=== PATIENT | female | born 1945 | race Caucasian/White ===

== ENCOUNTER 2016-11-11 16:26 | Emergency (ER) | payer MEDICARE, MEDICAID ==
--- NOTE | 2016-11-11 16:28 | EDM.PDOC ---
ED HPI GENERAL MEDICAL PROBLEM - General Chief Complaint: Neuro Symptoms/Deficits Stated Complaint: AMB Time Seen by Provider: 11/11/16 16:27 Source of Information: Reports: EMS, Old records, RN, RN notes reviewed - History of Present Illness INITIAL COMMENTS - FREE TEXT/NARRATIVE: Arrives by ambulance with Hx per pt's son that pt was having a lot of back pain today, and took a lot muscle relaxer (possibly cyclobenzaprine), baclofen, and possibly some type of benzodiazepine throughout the day. Pt walked to the local bar to buy cigarettes, son states that she was confused, and groggy. She stumbled, then sat down on the grass at the edge of the bar's parking lot. Then she laid back onto her back and was only responsive to tactile stimulation. EMS arrived and gave a 300ml IV fluid bolus, and Narcan 0.4mg IVP with no response. Onset: gradual Onset Date: 11/11/16 Onset Time: 14:30 (approx. 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, Other medication(s) (Narcan) - Related Data Allergies Allergy/AdvReac Type Severity Reaction Status Date / Time No Known Allergies Allergy Verified 11/11/16 17:42 Past Medical History Respiratory History: Reports: COPD Musculoskeletal History: Reports: Back pain, chronic, Osteoarthritis Endocrine/Metabolic History: Reports: Obesity/BMI 30+ Social & Family History - Family History Family Medical History: Unobtainable - Tobacco Use Smoking Status *Q: Current Every Day Smoker Tobacco Use Within Last Twelve Months: Cigarettes Second Hand Smoke Exposure: Yes - Caffeine Use Caffeine Use: Reports: Coffee, Soda - Living Situation & Occupation Living situation: Reports: with family Occupation: retired ED ROS GENERAL - Review of Systems Review Of Systems: Unable To Obtain ED EXAM, GENERAL - Physical Exam Exam: See Below Exam Limited By: Altered mental status (Decreased LOC) General Appearance: obtunded, obese Eye Exam: bilateral eye: EOMI, normal inspection, PERRL Ears: normal external exam Nose: normal inspection, normal mucosa, no blood Throat/Mouth: Normal lips, Normal oropharynx, No airway compromise, Other ( dentures, removed on arrival) Head: atraumatic, normocephalic Neck: normal inspection Respiratory/Chest: no respiratory distress, no accessory muscle use, decreased breath sounds, crackles, other (course breath sounds) Cardiovascular: normal peripheral pulses, regular rate, rhythm, no edema GI/Abdominal: normal bowel sounds, soft, non tender, no distention (Female) Exam: Deferred Rectal (Female) Exam: Deferred Back Exam: normal inspection Extremities: normal inspection, no pedal edema Neurological: other (responsive to tactile and painful stimuli) Skin Exam: Warm, Dry, Intact, Normal color, No rash EKG INTERPRETATION EKG Date: 11/11/16 Time: 16:47 Rhythm: other (SR) Rate (beats/min): 79 Morris: normal P-wave: present QRS: other (late transition, inferior Q-waves) ST-T: normal QT: prolonged Comparison: NA - no prior EKG Course - Vital Signs Last Recorded V/S: Last Vital Signs Temp 36.2 C 11/11/16 16:50 Pulse 82 11/11/16 17:46 Resp 16 11/11/16 17:46 BP 125/66 11/11/16 17:46 Pulse Ox 89 L 11/11/16 17:46 - Orders/Labs/Meds Orders: Active Orders 24 hr Category Date Time Status Blood Glucose Check, Bedside [RC] ONETIME Care 11/11/16 17:21 Active Blood Glucose Check, Bedside [RC] ONETIME Care 11/11/16 17:21 Active EKG 12 Lead [EKG Documentation Completion] [RC] STAT Care 11/11/16 16:29 Active Insert Negron Catheter [Insert Urinary Catheter] [OM.PC] Care 11/11/16 16:45 Ordered Q24H Peripheral IV Care [RC] . DIRECTED Care 11/11/16 16:32 Active Urinary Catheter Assessment [RC] ASDIRECTED Care 11/11/16 16:32 Active CK W CKMB [CHEM] Stat Lab 11/11/16 16:43 Results Piperacillin/Tazobactam [Zosyn] 3.375 gm Med 11/11/16 18:09 Ordered Sodium Chloride 0.9% [Normal Saline] 100 ml IV ONETIME Sodium Chloride 0.9% [Normal Saline] 1,000 ml Med 11/11/16 17:33 Active IV .BOLUS Sodium Chloride 0.9% [Saline Flush] Med 11/11/16 16:31 Active 10 ml FLUSH ASDIRECTED PRN NG [Nasogastric Orogastric Tube Insertion] [OM.PC] Ot 11/11/16 17:04 Ordered Routine Peripheral IV Insertion Adult [OM.PC] Stat Ot 11/11/16 16:29 Ordered Medication Orders Sodium Chloride (Normal Saline) 1,000 mls @ 999 mls/hr IV .BOLUS ONE Stop: 11/11/16 18:33 Last Admin: 11/11/16 17:33 Dose: 999 mls/hr Sodium Chloride (Saline Flush) 10 ml FLUSH ASDIRECTED PRN PRN Reason: Keep Vein Open Last Admin: 11/11/16 16:56 Dose: 10 ml Labs: Laboratory Tests 11/11/16 11/11/16 11/11/16 Range/Units 16:43 16:43 16:43 WBC 12.2 H (5.0-10.0) 10^3/uL RBC 4.36 (4.2-5.4) 10^6/uL Hgb 13.6 (12.0-16.0) g/dL Hct 40.4 (37.0-47.0) % MCV 92.7 (80-100) fL MCH 31.2 (27.0-34.0) pg MCHC 33.7 (33.0-35.0) g/dL Plt Count 274 (150-450) 10^3/uL Neut % (Auto) 65.8 (42.2-75.2) % Lymph % (Auto) 24.5 (20.5-50.1) % [place] % (Auto) 8.6 H (2-8) % Eos % (Auto) 0.9 L (1.0-3.0) % Baso % (Auto) 0.2 (0.0-1.0) % PT 10.6 (9.0-12.0) SEC INR 1.1 (0.9-1.2) APTT 27.6 (22.0-34.0) SEC Sodium 139 (135-145) mmol/L Potassium 3.3 L (3.6-5.0) mmol/L Chloride 109 (101-111) mmol/L Carbon Dioxide 25.0 (21.0-31.0) mmol/L Anion Gap 8.3 BUN 13 (7-18) mg/dL Creatinine 1.1 (0.6-1.3) mg/dL Est Cr Clr Drug Dosing TNP Estimated GFR (MDRD) 49 BUN/Creatinine Ratio 11.81 Glucose 84 (74-105) mg/dL POC Glucose (70-105) mg/dl Calcium 9.2 (8.4-10.2) mg/dl Total Bilirubin 0.5 (0.2-1.0) mg/dL AST 20 (10-42) IU/L ALT 17 (10-60) IU/L Alkaline Phosphatase 66 (42-121) IU/L CK-MB (CK-2) (0.4-4.7) ng/mL Troponin I < 0.02 (0.00-0.02) ng/ml Total Protein 6.7 (6.7-8.2) g/dl Albumin 3.6 (3.2-5.5) g/dl Globulin 3.1 Albumin/Globulin Ratio 1.16 Amylase 37 (28-100) U/L Lipase 20 L (22-51) U/L Urine Color (YELLOW) Urine Appearance (CLEAR) Urine pH (5.0-9.0) Ur Specific [place] (1.005-1.030) Urine Protein (NEGATIVE) Urine Glucose (UA) (NEGATIVE) Urine Ketones (NEGATIVE) Urine Occult Blood (NEGATIVE) Urine Nitrite (NEGATIVE) Urine Bilirubin (NEGATIVE) Urine Urobilinogen (0.2-1.0) mg/dL Ur Leukocyte Esterase (NEGATIVE) Urine RBC /HPF Urine WBC (0-5/HPF) /HPF Ur Epithelial Cells /HPF Urine Bacteria (0-FEW/HPF) /HPF Urine Mucus /LPF Salicylates < 4.0 Urine Opiates Screen (NEGATIVE) Ur Oxycodone Screen (NEGATIVE) Urine Methadone Screen (NEGATIVE) Acetaminophen < 10.0 Ur Barbiturates Screen (NEGATIVE) U Tricyclic Antidepress (NEGATIVE) Ur Phencyclidine Scrn (NEGATIVE) Ur Amphetamine Screen (NEGATIVE) U Methamphetamines Scrn (NEGATIVE) Urine MDMA Screen (NEGATIVE) U Benzodiazepines Scrn (NEGATIVE) Urine Cocaine Screen (NEGATIVE) U Marijuana (THC) Screen (NEGATIVE) Ethyl Alcohol < 5 mg/dL 11/11/16 11/11/16 11/11/16 Range/Units 16:43 16:45 16:45 WBC (5.0-10.0) 10^3/uL RBC (4.2-5.4) 10^6/uL Hgb (12.0-16.0) g/dL Hct (37.0-47.0) % MCV (80-100) fL MCH (27.0-34.0) pg MCHC (33.0-35.0) g/dL Plt Count (150-450) 10^3/uL Neut % (Auto) (42.2-75.2) % Lymph % (Auto) (20.5-50.1) % [place] % (Auto) (2-8) % Eos % (Auto) (1.0-3.0) % Baso % (Auto) (0.0-1.0) % PT (9.0-12.0) SEC INR (0.9-1.2) APTT (22.0-34.0) SEC Sodium (135-145) mmol/L Potassium (3.6-5.0) mmol/L Chloride (101-111) mmol/L Carbon Dioxide (21.0-31.0) mmol/L Anion Gap BUN (7-18) mg/dL Creatinine (0.6-1.3) mg/dL Est Cr Clr Drug Dosing Estimated GFR (MDRD) BUN/Creatinine Ratio Glucose (74-105) mg/dL POC Glucose (70-105) mg/dl Calcium (8.4-10.2) mg/dl Total Bilirubin (0.2-1.0) mg/dL AST (10-42) IU/L ALT (10-60) IU/L Alkaline Phosphatase (42-121) IU/L CK-MB (CK-2) 1.00 (0.4-4.7) ng/mL Troponin I (0.00-0.02) ng/ml Total Protein (6.7-8.2) g/dl Albumin (3.2-5.5) g/dl Globulin Albumin/Globulin Ratio Amylase (28-100) U/L Lipase (22-51) U/L Urine Color Yellow (YELLOW) Urine Appearance Clear (CLEAR) Urine pH 6.0 (5.0-9.0) Ur Specific [place] 1.010 (1.005-1.030) Urine Protein Negative (NEGATIVE) Urine Glucose (UA) Negative (NEGATIVE) Urine Ketones Negative (NEGATIVE) Urine Occult Blood Small H (NEGATIVE) Urine Nitrite Negative (NEGATIVE) Urine Bilirubin Negative (NEGATIVE) Urine Urobilinogen 1.0 (0.2-1.0) mg/dL Ur Leukocyte Esterase Negative (NEGATIVE) Urine RBC 5-10 H /HPF Urine WBC 0-5 (0-5/HPF) /HPF Ur Epithelial Cells Few /HPF Urine Bacteria Few (0-FEW/HPF) /HPF Urine Mucus Few H /LPF Salicylates Urine Opiates Screen Negative (NEGATIVE) Ur Oxycodone Screen Negative (NEGATIVE) Urine Methadone Screen Negative (NEGATIVE) Acetaminophen Ur Barbiturates Screen Negative (NEGATIVE) U Tricyclic Antidepress Positive H (NEGATIVE) Ur Phencyclidine Scrn Negative (NEGATIVE) Ur Amphetamine Screen Negative (NEGATIVE) U Methamphetamines Scrn Negative (NEGATIVE) Urine MDMA Screen Negative (NEGATIVE) U Benzodiazepines Scrn Positive H (NEGATIVE) Urine Cocaine Screen Negative (NEGATIVE) U Marijuana (THC) Screen Negative (NEGATIVE) Ethyl Alcohol mg/dL 11/11/16 11/11/16 Range/Units 17:29 17:54 WBC (5.0-10.0) 10^3/uL RBC (4.2-5.4) 10^6/uL Hgb (12.0-16.0) g/dL Hct (37.0-47.0) % MCV (80-100) fL MCH (27.0-34.0) pg MCHC (33.0-35.0) g/dL Plt Count (150-450) 10^3/uL Neut % (Auto) (42.2-75.2) % Lymph % (Auto) (20.5-50.1) % [place] % (Auto) (2-8) % Eos % (Auto) (1.0-3.0) % Baso % (Auto) (0.0-1.0) % PT (9.0-12.0) SEC INR (0.9-1.2) APTT (22.0-34.0) SEC Sodium (135-145) mmol/L Potassium (3.6-5.0) mmol/L Chloride (101-111) mmol/L Carbon Dioxide (21.0-31.0) mmol/L Anion Gap BUN (7-18) mg/dL Creatinine (0.6-1.3) mg/dL Est Cr Clr Drug Dosing Estimated GFR (MDRD) BUN/Creatinine Ratio Glucose (74-105) mg/dL POC Glucose 282 H 206 H (70-105) mg/dl Calcium (8.4-10.2) mg/dl Total Bilirubin (0.2-1.0) mg/dL AST (10-42) IU/L ALT (10-60) IU/L Alkaline Phosphatase (42-121) IU/L CK-MB (CK-2) (0.4-4.7) ng/mL Troponin I (0.00-0.02) ng/ml Total Protein (6.7-8.2) g/dl Albumin (3.2-5.5) g/dl Globulin Albumin/Globulin Ratio Amylase (28-100) U/L Lipase (22-51) U/L Urine Color (YELLOW) Urine Appearance (CLEAR) Urine pH (5.0-9.0) Ur Specific [place] (1.005-1.030) Urine Protein (NEGATIVE) Urine Glucose (UA) (NEGATIVE) Urine Ketones (NEGATIVE) Urine Occult Blood (NEGATIVE) Urine Nitrite (NEGATIVE) Urine Bilirubin (NEGATIVE) Urine Urobilinogen (0.2-1.0) mg/dL Ur Leukocyte Esterase (NEGATIVE) Urine RBC /HPF Urine WBC (0-5/HPF) /HPF Ur Epithelial Cells /HPF Urine Bacteria (0-FEW/HPF) /HPF Urine Mucus /LPF Salicylates Urine Opiates Screen (NEGATIVE) Ur Oxycodone Screen (NEGATIVE) Urine Methadone Screen (NEGATIVE) Acetaminophen Ur Barbiturates Screen (NEGATIVE) U Tricyclic Antidepress (NEGATIVE) Ur Phencyclidine Scrn (NEGATIVE) Ur Amphetamine Screen (NEGATIVE) U Methamphetamines Scrn (NEGATIVE) Urine MDMA Screen (NEGATIVE) U Benzodiazepines Scrn (NEGATIVE) Urine Cocaine Screen (NEGATIVE) U Marijuana (THC) Screen (NEGATIVE) Ethyl Alcohol mg/dL Meds: Medications Generic Name Dose Route Start Last Admin Trade Name Freq PRN Reason Stop Dose Admin Sodium Chloride 1,000 mls @ 999 mls/hr 11/11/16 17:33 11/11/16 17:33 Normal Saline IV 11/11/16 18:33 999 mls/hr .BOLUS ONE Administration Sodium Chloride 10 ml 11/11/16 16:31 11/11/16 16:56 Saline Flush FLUSH 10 ml ASDIRECTED PRN Administration Keep Vein Open Discontinued Medications Generic Name Dose Route Start Last Admin Trade Name Nelson PRN Reason Stop Dose Admin Dextrose/Water 50 ml 11/11/16 17:21 11/11/16 17:26 Dextrose 50% In Water IVPUSH 11/11/16 17:22 50 ml ONETIME ONE Administration Flumazenil 0.2 mg 11/11/16 16:34 11/11/16 16:56 Romazicon IVPUSH 11/11/16 16:35 0.2 mg ONETIME ONE Administration Flumazenil 0.2 mg 11/11/16 17:22 11/11/16 17:31 Romazicon IVPUSH 11/11/16 17:23 0.2 mg ONETIME ONE Administration Sodium Chloride 1,000 mls @ 999 mls/hr 11/11/16 16:33 11/11/16 16:56 Normal Saline IV 11/11/16 17:33 999 mls/hr .BOLUS ONE Administration Naloxone HCl 2 mg 11/11/16 16:36 11/11/16 16:57 Narcan IVPUSH 11/11/16 16:37 2 mg ONETIME ONE Administration Naloxone HCl 1 mg 11/11/16 17:04 11/11/16 17:44 Narcan IVPUSH 11/11/16 17:05 1 mg ONETIME ONE Administration Ondansetron HCl 4 mg 11/11/16 16:40 11/11/16 16:56 Zofran IV 11/11/16 16:41 4 mg ONETIME ONE Administration Pantoprazole Sodium 80 mg 11/11/16 17:04 11/11/16 17:16 Protonix Iv IVPUSH 11/11/16 17:05 80 mg .BOLUS ONE Administration - Radiology Interpretation Free Text/Narrative:: CT Head: no acute I.C. hemorrhage, see Rad. report. CXR: NG tube in stomach, opacity in medial aspect of the right upper lobe, see Rad. report. CT Results Date: 11/11/16 - Re-Assessments/Exams Free Text/Narrative Re-Assessment/Exam: 11/11/16 18:19 NG tube and negron catheter placed by RN. Departure - Departure Time of Disposition: 18:19 (admit to Dr. Gaytan) Disposition: Admitted As Inpatient 68 Condition: serious Clinical Impression: Hyperglycemia Benzodiazepine overdose of undetermined intent Qualifiers: Encounter type: initial encounter Qualified Code(s): T42.4X4A - Poisoning by benzodiazepines, undetermined, initial encounter Polysubstance overdose Qualifiers: Encounter type: initial encounter Injury intent: undetermined intent Qualified Code(s): T50.904A - Poisoning by unspecified drugs, medicaments and biological substances, undetermined, initial encounter Vomiting Qualifiers: Vomiting type: unspecified Vomiting Intractability: unspecified Nausea presence : unspecified Qualified Code(s): R11.10 - Vomiting, unspecified Forms: ED Department Discharge - My Orders Last 24 Hours: My Active Orders 11/11/16 16:29 EKG 12 Lead [EKG Documentation Completion] [RC] STAT Peripheral IV Insertion Adult [OM.PC] Stat 11/11/16 16:31 Sodium Chloride 0.9% [Saline Flush] 10 ml FLUSH ASDIRECTED PRN 11/11/16 16:32 Peripheral IV Care [RC] . DIRECTED Urinary Catheter Assessment [RC] ASDIRECTED 11/11/16 16:43 CK W CKMB [CHEM] Stat 11/11/16 16:45 Insert Negron Catheter [Insert Urinary Catheter] [OM.PC] Q24H 11/11/16 17:04 NG [Nasogastric Orogastric Tube Insertion] [OM.PC] Routine 11/11/16 17:21 Blood Glucose Check, Bedside [RC] ONETIME Blood Glucose Check, Bedside [RC] ONETIME 11/11/16 17:33 Sodium Chloride 0.9% [Normal Saline] 1,000 ml IV .BOLUS 11/11/16 18:09 Piperacillin/Tazobactam [Zosyn] 3.375 gm Sodium Chloride 0.9% [Normal Saline] 100 ml IV ONETIME - Assessment/Plan Last 24 Hours: My Active Orders 11/11/16 16:29 EKG 12 Lead [EKG Documentation Completion] [RC] STAT Peripheral IV Insertion Adult [OM.PC] Stat 11/11/16 16:31 Sodium Chloride 0.9% [Saline Flush] 10 ml FLUSH ASDIRECTED PRN 11/11/16 16:32 Peripheral IV Care [RC] . DIRECTED Urinary Catheter Assessment [RC] ASDIRECTED 11/11/16 16:43 CK W CKMB [CHEM] Stat 11/11/16 16:45 Insert Negron Catheter [Insert Urinary Catheter] [OM.PC] Q24H 11/11/16 17:04 NG [Nasogastric Orogastric Tube Insertion] [OM.PC] Routine 11/11/16 17:21 Blood Glucose Check, Bedside [RC] ONETIME Blood Glucose Check, Bedside [RC] ONETIME 11/11/16 17:33 Sodium Chloride 0.9% [Normal Saline] 1,000 ml IV .BOLUS 11/11/16 18:09 Piperacillin/Tazobactam [Zosyn] 3.375 gm Sodium Chloride 0.9% [Normal Saline] 100 ml IV ONETIME
[2016-11-11] MEDS ORDERED: Sodium Chloride 0.9% 10 ML Syringe FLUSH PRN (16:31)
[2016-11-11] MEDS ORDERED: Sodium Chloride 0.9% 1,000 ML IV ONE ×2 (16:33→17:33)
[2016-11-11] MEDS ORDERED: Flumazenil 0.1 MG/ML 5 ML MDV IVPUSH ONE ×2 (16:34→17:22)
[2016-11-11] MEDS ORDERED: Naloxone 2 MG/2 ML Syringe IVPUSH ONE ×2 (16:36→17:04)
[2016-11-11] MEDS ORDERED: Ondansetron 4 MG/2 ML SDV IV ONE (16:40)
[2016-11-11] MEDS ORDERED: Pantoprazole 40 MG Vial IVPUSH ONE (17:04)
[2016-11-11 17:13] LABS: CHLORIDE,CL 109 mmol/L (101-111); SODIUM,NA 139 mmol/L (135-145)
[2016-11-11] MEDS ORDERED: 50% Dextrose in Water 50 ML Syringe IVPUSH ONE (17:21)
[2016-11-11 17:28] LABS: ACETAMINOPHEN < 10.0
[2016-11-11] MEDS ORDERED: Piperacillin/Tazobactam 3.375 GM in Sodium Chloride 0.9% 100 ML IV ONE (18:09)
[2016-11-11 18:56] LABS: O2 DELIVERY DEVICE NON REBR MASK
[2016-11-11 18:57] LABS: BASE EXCESS ARTERIAL -4 mmol/L ((-2)-(+3)); BICARBONATE,ARTERIAL 23.4 mmol/L (22-26); O2 SATURATION ARTERIAL 96 % (95-100); PCO2 ARTERIAL 56 mmHg (35-45); PO2 ARTERIAL 96 mmHg (70-100)
[2016-11-11 19:00] LABS: ALLEN TEST pos; O2 FLOW RATE 15
--- NOTE | 2016-12-06 11:24 | EKG ---
11/11/2016- TIA RIVERA E - EKG per my reading shows sinus rhythm at a rate of 79 with inferior Q-waves. QTc interval of 502. [facility] /[id number]
== END 2016-11-11 19:55 | disposition critical access hospital (66) ==
LOC: DL.ED 16:26
DX: R73.9 Hyperglycemia, unspecified (principal); T42.4X4A Poisoning by benzodiazepines, undetermined, initial encounter; T50.904A Poisoning by unspecified drugs, medicaments and biological substances, undetermined, initial encounter; R11.10 Vomiting, unspecified; J44.9 Chronic obstructive pulmonary disease, unspecified; E66.9 Obesity, unspecified; M19.90 Unspecified osteoarthritis, unspecified site
CPT/HCPCS: 36415; 36600; 70450; 71010; 80053; 80305; 81001; 82150; 82271; 82550; 82553; 82803; 82962; 83690; 84484; 85025; 85610; 85730; 93005; 96361; 96365; 96375; 96376; 99285; C9113; G0480; J2310; J2405; J2543; J7030; J7050; 93010; J3490; J7060